=== PATIENT | female | born 1960 | race African-American/Black ===

== ENCOUNTER 2016-07-05 21:23 | Emergency (ER) | payer MEDICAID ==
[2016-07-05 21:57] VITALS: PULSE 68; RESP 18; TEMP 98.4; O2SAT 97
--- NOTE | 2016-07-05 22:51 | UCPHY ---
H & P Time Seen by Provider: 07/05/16 22:32 Patient Type: New HPI/ROS: This patient presents with a chief complaint of left eye pain which began 2 days ago. She was seen by an eye doctor earlier today and told that she had an eye infection and antibiotics were prescribed however she did not fill the prescription because of financial difficulties. She describes pain and extreme photophobia. She does wear contact lenses although she was told not to wear these for at least 5 days. Smoking Status: Current every day smoker Physical Exam: This is a well-developed well-nourished female appears to be quite uncomfortable. She is very photophobic. There is conjunctival injection. No exudate is appreciated. Slit-lamp examination shows a corneal ulcer. The exam was difficult because the patient's photophobia in spite of the use of topical anesthetics. Constitutional: Initial Vital Signs Temperature (C) 36.9 C 07/05/16 21:54 Heart Rate 68 07/05/16 21:54 Respiratory Rate 18 07/05/16 21:54 O2 Sat (%) 97 07/05/16 21:54 O2 Delivery Mode Room Air Allergies/Adverse Reactions: No Known Allergies Allergy (Unverified 07/05/16 21:54) Home Medications: Medication Instructions Recorded NK [No Known Home Meds] 07/05/16 Medical Decision Making ED Course/Re-evaluation: She was sent home with take-home ofloxacin. I impressed upon her the importance of following up with her eye doctor within 24 hours. Departure - Departure Disposition: Home, Routine, Self-Care Clinical Impression: Corneal ulcer Qualifiers: Laterality: left Qualified Code(s): H16.002 - Unspecified corneal ulcer, left eye Condition: Good Instructions: Corneal Ulcer (ED) Additional Instructions: You should have your eye rechecked in 24 hours. Use antibiotic drops as prescribed and you should be using them at least 2 drops per hour. Use ibuprofen as well for pain the dose is indicated below. Adult Pain & Fever Control: We recommend Acetaminophen (Tylenol) and Ibuprofen (Motrin, Advil) for pain and fever control. When fever is high or pain severe, both drugs can be used at the same time, but at different intervals. Please note the time differences. Your dose is: Acetaminophen [650]mg every 4 to 6 hours ibuprofen [600]mg every [6] hours with food OR naproxen Sodium (Aleve) [440]mg every 12 hours. Note: do not take Acetaminophen with Hydrocodone (Vicodin, Lortab) or Oxycodone (Percocet). These medications also contain Acetaminophen. No more than 3000 mg of Acetaminophen should be taken in 24 hours (for an adult) . The maximal dose of ibuprofen that it is safe in a 24-hour period is 2400 mg. You may take 400 mg every 4 hours, 600 mg every 6 hours or 800 mg every 8 hours safely. Referrals: NONE *PRIMARY CARE P,. [Primary Care Provider] - As per Instructions - PQRS PQRS Measurement: Not apply
[2016-07-05] MEDS ORDERED: OFLOXACIN 0.3% SOLN PREPACK OPHT.BTL TAKEHOME ONE (22:52)
== END 2016-07-05 23:05 | disposition home or self-care (01) ==
LOC: CED 21:23
DX: H16.002 Unspecified corneal ulcer, left eye (principal); Z72.0 Tobacco use
CPT/HCPCS: 99202-PO; G0463-PO

== ENCOUNTER 2016-11-06 21:06 | Emergency (ER) | payer MEDICAID ==
--- NOTE | 2016-11-06 22:13 | EDPHY ---
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 The tingling and numbness are currently resolved. She denies any acute trauma. Her shoulder was bothering her most of the day and then as she was leaving work she began having acute pain in her right low back. She describes it as stabbing and sharp. It does not radiate down her legs. It is not associated with bowel or bladder incontinence. She denies any fever or chills. She has had this shoulder problem in the past and it recurs from time to time. She has never had the back pain before. She denies any urinary symptoms. She has not taken anything for it. She denies any specific trauma that brought on tonight. REVIEW OF SYSTEMS: As in HPI, and all other systems reviewed and are negative Smoking Status: Current every day smoker Physical Exam: General Appearance: Alert and no distress. Eyes: Pupils equal and round no injection. Musculoskeletal: Neck is supple and nontender. Neck and back: Full range of motion, no bony tenderness, right midthoracic paraspinal tenderness and palpable muscle spasm, positive tenderness and palpable muscle spasm along right trapezius muscle and above right shoulder. Bilateral negative straight leg test, normal gait. Extremities: Right shoulder full range of motion without pain, radial, median and ulnar nerves intact motor and sensory. Positive tenderness around right posterior shoulder Skin: No rashes or lesions. Neuro: Strength 5/5 and equal bilaterally, normal gait, reflexes 2+ and equal bilaterally in upper and lower extremities Constitutional: Initial Vital Signs Temperature (C) 37.5 C 11/06/16 21:20 Heart Rate 86 11/06/16 21:20 Respiratory Rate 16 11/06/16 21:20 Blood Pressure 149/103 H 11/06/16 21:20 O2 Sat (%) 97 11/06/16 21:20 O2 Delivery Mode Room Air Allergies/Adverse Reactions: No Known Allergies Allergy (Unverified 11/06/16 21:19) Home Medications: Medication Instructions Recorded Cyclobenzaprine [Flexeril 10 MG 10 mg PO TID #10 tab 11/06/16 (*)] MDM/Departure - [facility] Course/Re-evaluation: 56-year-old woman presents complaining of right shoulder pain and right low back pain with exam consistent muscle spasm. There is no evidence of neurologic impairment or red flags suggesting need for imaging. We discussed home care and conservative measures and return precautions. Patient will be given tonight after work and can follow up with her primary care physician as needed. - Depart Disposition: Home, Routine, Self-Care Clinical Impression: Shoulder pain, acute Qualifiers: Laterality: right Qualified Code(s): M25.511 - Pain in right shoulder Low back pain Qualifiers: Chronicity: acute Back pain laterality: right Sciatica presence: without sciatica Qualified Code(s): M54.5 - Low back pain Condition: Good Instructions: Muscle Spasm (ED) Additional Instructions: You were seen by Dr. Anjana Mcdonald today. Return for any worsening or new concerns. Your back and shoulder pain or due to muscle spasm. These will improve over time. Take ibuprofen as needed for pain and Flexeril as a muscle relaxant. Do not drive or work while taking Flexeril. Try massage for your muscle spasm. Follow up with the regular doctor as needed. Prescriptions: Cyclobenzaprine [Flexeril 10 MG (*)] 10 mg PO TID #10 tab Referrals: NONE *PRIMARY CARE P,. [Primary Care Provider] - As per Instructions
[2016-11-06] MEDS ORDERED: CYCLOBENZAPRINE 10MG PREPACK#3 BTL TAKEHOME ONE (22:16)
[2016-11-06 22:18] VITALS: BP 135/82; PULSE 85; RESP 18; TEMP 98.6; O2SAT 95
== END 2016-11-06 22:28 | disposition home or self-care (01) ==
LOC: CED 21:06
DX: M25.511 Pain in right shoulder (principal); M54.5 Low back pain; F17.200 Nicotine dependence, unspecified, uncomplicated